=== PATIENT | female | born 1995 | race Caucasian/White ===

== ENCOUNTER → 2020-11-25 | Outpatient (CLI) ==
[~2020-11-25] MED LIST: BUPR150T12; FLUO20CA22; PROBCAP17 PO; [UNRECOGNIZED DRUG - CODE]
== END ==
LOC: M LABSMTC 09:47 → EDUNIT# 12:25
PROVIDERS: ATTEND Anesthesiology
DX: Z01.812 Encounter for preprocedural laboratory examination (principal); Z20.822 Contact with and (suspected) exposure to COVID-19

== ENCOUNTER 2020-11-30 10:38 | Day surgery (SDC) | payer BC ==
[~2020-11-30] VITALS: Ht 170.2 cm; Wt 158.2 kg
[~2020-11-30 10:38] MED LIST changes: +LIDOCAINE 1% MDV 20ML VIAL SQ PRN; +LR 1,000 ML IV ONE
[2020-11-30] MEDS ORDERED: propofoL 200 MG/20 ML VIAL As Ordered ONE ×2 (12:19→12:28)
[2020-11-30] MEDS ORDERED: SUCCINYLCHOLINE 100 MG/5 ML SYRINGE (J0330) As Ordered ONE (12:19)
[2020-11-30] MEDS ORDERED: dexameTHASONE 4 MG/ML 1ML VIAL (J1100 PER 1MG) As Ordered ONE (12:19)
[2020-11-30] MEDS ORDERED: ROCURONIUM BROMIDE 50 MG/5 ML VIAL As Ordered ONE (12:19)
[2020-11-30] MEDS ORDERED: fentaNYL 100 MCG/2 ML INJECTION (J3010) As Ordered ONE ×2 (12:20→13:43)
[2020-11-30] MEDS ORDERED: MIDAZOLAM INJ 2MG/2ML VIAL (J2250 PER 1MG) As Ordered ONE (12:20)
[2020-11-30] MEDS ORDERED: LIDOCAINE 2% 100MG/5ML SDV (FOR ANES.) As Ordered ONE (12:21)
[2020-11-30] MEDS ORDERED: BUPIVACAINE/EPIN 0.5% 30 ML VIAL As Ordered ONE (12:27)
[2020-11-30] MEDS: fentaNYL 100 MCG/2 ML INJECTION (J3010) IV PRN ×4 (13:45→14:00)
[2020-11-30] MEDS ORDERED: METOCLOPRAMIDE INJ 10MG/2ML VIAL (J2765 PER 1) IV PRN (13:55)
[2020-11-30] MEDS ORDERED: ONDANSETRON 4MG/2ML VIAL IV PRN ×3 (13:55→14:05)
[2020-11-30] MEDS ORDERED: oxyCODONE 5MG TAB PO PRN (13:55)
[2020-11-30] MEDS ORDERED: LR 1,000 ML IV SCH ×2 (13:55→14:05)
[2020-11-30] MEDS ORDERED: ONDANSETRON 4 MG TAB PO PRN ×2 (14:05)
[2020-11-30] MEDS ORDERED: HYDROcodone/APAP LIQUID 7.5-325MG 15ML UDC (LORTAB ELIXIR) PO PRN (14:05)
[2020-11-30] MEDS ORDERED: LABETALOL 100MG/20ML VIAL As Ordered ONE (14:32)
[2020-11-30] MEDS: LABETALOL 100MG/20ML VIAL IV PRN ×5 (14:36→15:13)
[2020-11-30 16:30] VITALS: BP 170/93
== END 2020-11-30 16:40 | disposition home or self-care (01) ==
LOC: M SDC 10:38
PROVIDERS: ATTEND Otolaryngology
DX: J35.03 Chronic tonsillitis and adenoiditis (principal); K58.8 Other irritable bowel syndrome; F41.9 Anxiety disorder, unspecified; F32.9 Major depressive disorder, single episode, unspecified; E66.01 Morbid (severe) obesity due to excess calories; Z79.899 Other long term (current) drug therapy
CPT/HCPCS: 42821; 81025; 88302; J0330; J1100; J2250; J3010